=== PATIENT | male | born 1950 | race Caucasian/White ===

== ENCOUNTER 2020-09-23 06:39 | Observation (INO) | payer MEDICARE ==
[2020-09-16 14:45] LABS: BASOPHILS % (AUTO) 0.6 % (0-1); EOSINOPHILS # (AUTO) 0.2 X10'3 (0-0.9); EOSINOPHILS % (AUTO) 3.7 % (0-6); LYMPHOCYTES # (AUTO) 1.2 X10'3 (1.1-4.8); LYMPHOCYTES % (AUTO) 19.3 % (21-51); MEAN CORPUSCULAR HGB CONC 33.8 g/dL (33.0-36.5); MEAN CORPUSCULAR VOLUME 91.8 FL (78-98); MEAN PLATELET VOLUME 7.7 FL (7.4-10.4); MONOCYTES # (AUTO) 0.6 X10'3 (0-0.9); MONOCYTES % (AUTO) 10.3 % (2-12); NEUTROPHILS # (AUTO) 4.1 X10'3 (1.8-7.7); NEUTROPHILS % (AUTO) 66.1 % (42-75); PRE OP HEMATOCRIT 38.8 % (42.0-52.0); PRE OP HEMOGLOBIN 13.1 g/dL (14.0-17.9); PRE OP PLATELET COUNT 305 X10'3 (140-440); RED BLOOD COUNT 4.23 X10'6 (4.70-6.10); RED CELL DISTRIBUTION WIDTH 12.6 % (11.5-14.5)
[2020-09-16 14:50] LABS: CLARITY,URINE CLEAR (Clear); COLOR,URINE YELLOW (Yellow); GLUCOSE, URINE NEGATIVE (Neg); KETONES,URINE NEGATIVE (Neg); LEUKOCYTE ESTERASE ,URINE NEGATIVE (Neg); NITRITES, URINE NEGATIVE (Neg); OCCULT BLOOD,URINE NEGATIVE (Neg); PROTEIN,URINE NEGATIVE (Neg); UROBILINOGEN,URINE 0.2 E.U/dL (0.2-1.0)
[2020-09-16 14:57] LABS: UA COLLECTION TYPE CLN CATCH MIDSTREAM
[2020-09-16 15:00] LABS: ALBUMIN 3.8 G/DL (3.4-5.0); ALKALINE PHOSPHATASE 76 IU/L (46-116); BLOOD UREA NITROGEN 17 MG/DL (7-18); BUN/CREATININE RATIO 18.7 (5.4-32.0); CALCIUM 9.4 MG/DL (8.5-10.1); CHLORIDE 98 MMOL/L (99-107); CREATININE 0.91 MG/DL (0.60-1.10); PRE OP ALT 20 U/L (30-65); PRE OP ANION GAP 5 (8-16); PRE OP AST 17 U/L (10-37); PRE OP BILIRUB, TOTAL 0.3 MG/DL (0.0-1.0); PRE OP GLUCOSE 97 MG/DL (70-104); PRE OP POTASSIUM 4.2 MMOL/L (3.4-5.1); PRE OP SODIUM 134 MMOL/L (135-145); TOTAL CARBON DIOXIDE 31.4 MMOL/L (24-32); TOTAL PROTEIN 7.6 G/DL (6.4-8.2); eGFR 82 ML/MIN
[~2020-09-23] VITALS: Ht 175.3 cm; Wt 79.4 kg
[2020-09-23] VITALS (17 sets, daily range): BP systolic 132–164; BP diastolic 72–90
[~2020-09-23 06:39] MED LIST: DOCUMENT DATE & TIME OF BETA-BLOCKER PO ONE; FLO0.4C PO; METO-395 PO; MV-M1CAP15 PO; ceFAZolin 2gm in dextrose, iso 50 ML IV ONE; famotidine 20mg tablet PO ONE; ringers solution, lacted 1,000 ML IV SCH
[2020-09-23] MEDS ORDERED: BUPIVAcaine/PF 2.5 mg/ml (0.25%) 30ml vial ONE (06:41)
--- NOTE | 2020-09-23 08:47 | NUR ---
VERBAL COVID SCREEN NEGATIVE Addendum: 09/23/20 at 0901 by Dawna Morales RN Amended: Links added.
[2020-09-23] MEDS ORDERED: ondansetron/PF 4mg/2ml inj ONE (09:42)
[2020-09-23] MEDS ORDERED: sevoflurane 250ml liquid IH ONE (09:42)
[2020-09-23] MEDS ORDERED: fentaNYL/PF 50MCG/1 ML 2ML syringe ONE (09:47)
[2020-09-23] MEDS ORDERED: midazolam 1 mg/ML 2ml injection ONE (09:47)
[2020-09-23] MEDS ORDERED: LIDOcaine 2% (20mg/ml) 5ml vial ONE (09:48)
[2020-09-23] MEDS ORDERED: propofol inj 20 ML IV ONE (09:48)
[2020-09-23] MEDS ORDERED: dexamethasone sod phosphate 4mg/ml inj. ONE (10:01)
[2020-09-23] MEDS ORDERED: rocuronium 10mg/ml inj IV ONE (10:01)
[2020-09-23] MEDS ORDERED: acetaminophen 1,000mg/100ml IV 100 ML IV ONE (10:09)
[2020-09-23] MEDS ORDERED: meperidine/PF 25mg/ml syringe IV PRN ×3 (11:20)
[2020-09-23] MEDS ORDERED: morphine 4 MG/ML inj SYRINge IV PRN (11:20)
[2020-09-23] MEDS ORDERED: ondansetron/PF 4mg/2ml inj IV PRN (11:20)
[2020-09-23] MEDS ORDERED: morphine 2 MG/ML inj. syringe IV PRN (11:20)
[2020-09-23] MEDS ORDERED: ringers solution, lacted 1,000 ML IV SCH (11:20)
[2020-09-23] MEDS ORDERED: proCHLORperazine 10 MG/2 ml inj IV PRN (11:20)
[2020-09-23] MEDS ORDERED: glycopyrrolate 0.2mg/ml inj ONE (11:31)
[2020-09-23] MEDS ORDERED: neostigmine methylsulfate 1 MG/ML 10ml vial ONE (11:31)
--- NOTE | 2020-09-23 11:38 | NUR ---
Received from OR via BED, accompanied by Anesthesiologist CHAI and report given by Anesthesiolgist. PT AROUSABLE, O2 AT 10L. VIA MASK, VSS, NSR. ABLE TO COUGH AND DEEP BREATHE, 18 G. IN RIGHT FA WITH LR INFUSING AT 100 ML/HR. IV IN L. WRIST NOT FUNCTIONING IN OR. 4 INCISIONS ON ABDOMENT CLOSED WITH DERMABOND. PT. STATES PAIN AT "3" WHICH HE SAYS IS "OKAY". SCD'S IN PLACE AND FUNCTIONING. PT. RESTING AT THIS TIME. EYES CLOSED, BREATHING EVEN AND UNLABORED. Addendum: 09/23/20 at 1207 by Nieves Grant RN Amended: Links added.
[2020-09-23] MEDS ORDERED: HYDROcodone/acetaminophen 10/325mg tab PO PRN ×2 (12:15)
--- NOTE | 2020-09-23 12:28 | NUR ---
REPORT CALLED TO [facility] FLOOR, YOHANA , PT. TRANSPORTED ON BED. MADELINE BATISTA PRESENT TO ACCEPT CARE. REITERATED TO YOHANA THAT PT. IS A FALL RISK/ DEMENTIA.. BELONGINGS SENT WITH PT. VSS. PT. ALERT. 4 INCISIONS WITH DERMABOND INTACT ON ABDOMEN. REPORTS PAIN AT 3 WHICH IS "OKAY". LR INFUSING AT 70 ML/HR INTO R. FA 18G IV SITE WHICH IS CDI. Addendum: 09/23/20 at 1246 by Nieves Grant RN Amended: Links added.
--- NOTE | 2020-09-23 13:00 | NUR ---
Patient in room [facility] 357. I have received report from Nieves CORREA and had the opportunity to ask questions and assume patient care.
--- NOTE | 2020-09-23 16:18 | NUR ---
Dr Pina called the floor. I informed Dr Pina that patient is having light pink urine s/p gonzalez being discontinued in the OR. Dr Pina aware patient had a TURP [address] Blair. [address] Dr Pina continue to monitor urine and if he starts to have clots you can do an H&H. Primary RN Lashonda menezes.
--- NOTE | 2020-09-23 18:21 | NUR ---
Problems reprioritized. Patient report given, questions answered & plan of care reviewed with Pat RN.
[2020-09-23] MEDS ORDERED: tamsulosin 0.4mg capsule PO SCH (21:00)
[2020-09-23] MEDS ORDERED: metoprolol succinate 25mg (24-HOUR) SR. Tablet PO SCH (21:00)
[2020-09-24] VITALS: BP 150/86
[2020-09-24 04:30] VITALS: BP 136/75
--- NOTE | 2020-09-24 06:38 | NUR ---
Patient in room [facility] 357. I have received report from Pat RN and had the opportunity to ask questions and assume patient care.
[2020-09-24 07:00] VITALS: BP 131/76
[2020-09-24] MEDS ORDERED: multivitamins, therapeutics tablet PO SCH (08:00)
[2020-09-24 11:51] VITALS: BP 147/77
[2020-09-24 12:48] VITALS: BP 148/73
--- NOTE | 2020-09-24 14:15 | NUR ---
Patient left the floor at 1355. He was educated on follow up care, restrictions, and diet. IV was removed by Nadia CORREA and canula was intact.
--- NOTE | 2020-09-25 10:13 | NUR ---
CASE MANAGEMENT DISCHARGE FOLLOW UP: Spoke with pt via telephone. Reports that he is "doing okay," denies constant pain, states only has pain when he stands/walks; denies SOB, CP, fever, swelling, redness, discharge/bleeding, dizziness/weakness. Verbalizes understanding of s/sx requiring further evaluation/emergent assistance. Verbalizes understanding of medications. Verbalizes compliance with MD discharge instructions. Verbalizes understanding of the importance in keeping follow-up appointments, will see Dr Mcintyre on 09/29/20 @ [id number]. States no further questions/concerns at this time.
== END 2020-09-24 13:57 | disposition home or self-care (01) ==
LOC: PAS 06:39 → SUR 3N 12:15
PROVIDERS: ADMIT Surgery; ATTEND Surgery
DX: K43.9 Ventral hernia without obstruction or gangrene (principal); Z20.822 Contact with and (suspected) exposure to COVID-19; Z96.642 Presence of left artificial hip joint
CPT/HCPCS: 36415; 49652; 80053; 81003; 82948; 85025; 87635; 96360; 96361; C1758; C1781; G0378; J0131; J1100; J2001; J2250; J2405; J2704; J2710; J3010; J3490; J7120; A4215; A4618

== ENCOUNTER 2023-11-11 22:00 | Inpatient (IN) | payer MEDICARE ==
[~2023-11-11] VITALS: Ht 165.1 cm; Wt 77.3 kg
[~2023-11-11 22:00] MED LIST changes: -DOCUMENT DATE & TIME OF BETA-BLOCKER PO ONE; -ceFAZolin 2gm in dextrose, iso 50 ML IV ONE; -famotidine 20mg tablet PO ONE; -ringers solution, lacted 1,000 ML IV SCH
[2023-11-11 23:36] LABS: BASOPHILS % (AUTO) 0.1 % (0-1); EOSINOPHILS % (AUTO) 0.2 % (0-6); HEMATOCRIT 31.9 % (42.0-52.0); HEMOGLOBIN 10.8 g/dl (14.0-17.9); LYMPHOCYTES # (AUTO) 0.5 X10'3 (1.1-4.8); LYMPHOCYTES % (AUTO) 2.7 % (21-51); MEAN CORPUSCULAR HEMOGLOBIN 31.4 PG (27.0-31.0); MEAN CORPUSCULAR VOLUME 92.6 FL (78-98); MEAN PLATELET VOLUME 8.3 FL (7.4-10.4); MONOCYTES # (AUTO) 0.8 X10'3 (0-0.9); MONOCYTES % (AUTO) 4.8 % (2-12); NEUTROPHILS # (AUTO) 15.8 X10'3 (1.8-7.7); NEUTROPHILS % (AUTO) 92.2 % (42-75); PLATELET COUNT 246 X10'3 (140-440); RED BLOOD COUNT 3.44 X10'6 (4.70-6.10); RED CELL DISTRIBUTION WIDTH 12.8 % (11.5-14.5); WHITE BLOOD COUNT 17.1 X10'3 (4.5-11.0)
[2023-11-11 23:44] LABS: ALBUMIN 3.7 G/DL (3.4-5.0); ANION GAP 13 (8-16); BLOOD UREA NITROGEN 27 MG/DL (7-18); BUN/CREATININE RATIO 28.4 (10.0-20.0); CHLORIDE 99 MMOL/L (99-107); CREATININE 0.95 MG/DL (0.60-1.10); GLUCOSE 153 MG/DL (70-104); POTASSIUM 4.1 MMOL/L (3.5-5.1); SODIUM 136 MMOL/L (135-145); TOTAL CARBON DIOXIDE 23.7 MMOL/L (24-32); eCRCL 59 ML/MIN; eGFR 77 ML/MIN
[2023-11-12] VITALS (26 sets, daily range): BP systolic 93–163; BP diastolic 54–85; PULSE 96–121; RESP 11–22; TEMP 97.4–98; O2SAT 95–100
[2023-11-12] MEDS: piperacillin/tazo 3.375gm/50ml 50 ML IV ONE (00:13)
[2023-11-12] MEDS ORDERED: HYDROmorphone/PF 0.2 MG/ML SYRINGE IV PRN (01:55)
[2023-11-12] MEDS ORDERED: magnesium 2GM in 50ml NS 50 ML IV PRN (01:55)
[2023-11-12] MEDS ORDERED: magnesium 4gm in 100ml NS 100 ML IV PRN (01:55)
[2023-11-12] MEDS ORDERED: potassium Cl 20 mEq SR tablet PO PRN ×2 (01:55)
[2023-11-12] MEDS ORDERED: potassium Cl 40MEQ/1/2NS 520ml 520 ML IV PRN (01:55)
[2023-11-12] MEDS ORDERED: acetaminophen 325mg tablet PO PRN (01:55)
[2023-11-12] MEDS: normal saline 1000ML IV soln IVB ONE (02:02)
[2023-11-12 02:41] LABS: MAGNESIUM 1.9 MG/DL (1.5-2.4)
[2023-11-12] MEDS: normal saline 1000ml 1,000 ML IV SCH (03:52)
[2023-11-12] MEDS ORDERED: VIBE75TA PO (04:26)
[2023-11-12] MEDS ORDERED: ROSU5TAB12 PO (04:27)
[2023-11-12] MEDS: K and/or MAG REPLACEMENT MC SCH (08:00)
[2023-11-12] MEDS: multivitamins, therapeutics tablet PO SCH (08:00)
[2023-11-12] MEDS: Vibegron (Gemtesa) 75 MG TAB PO SCH (08:00)
[2023-11-12] MEDS: docusate sod 100mg capsule PO SCH (08:00)
[2023-11-12] MEDS: ROSUVASTATIN CALCIUM 5 MG TABLET PO SCH (08:00)
[2023-11-12] MEDS: piperacillin/tazo 4.5gm/100ml 100 ML IV SCH (08:00)
[2023-11-12] MEDS ORDERED: sevoflurane 250ml liquid IH ONE (08:50)
[2023-11-12] MEDS ORDERED: fentaNYL /PF 50mcg/ml 5ml ampule ONE (08:55)
[2023-11-12] MEDS ORDERED: midazolam 1 mg/ML 2ml injection ONE (08:55)
[2023-11-12] MEDS ORDERED: BUPIVAcaine/PF 2.5mg/ml (0.25%) 10ml vial ONE (08:58)
[2023-11-12] MEDS ORDERED: BUPIVACAINE liposomal/PF 13.3 MG/ML vial IM ONE (08:58)
[2023-11-12] MEDS ORDERED: propofol inj 20 ML IV ONE (08:59)
[2023-11-12] MEDS ORDERED: rocuronium 10mg/ml inj IV ONE (08:59)
[2023-11-12 09:09] LABS: OCCULT BLOOD STOOL POSITIVE (Neg)
[2023-11-12] MEDS ORDERED: dexamethasone sod phosphate 4mg/ml inj. ONE (09:28)
[2023-11-12] MEDS ORDERED: LIDOcaine 2% (20mg/ml) 5ml vial ONE (09:28)
[2023-11-12] MEDS ORDERED: ondansetron/PF 4mg/2ml inj ONE (09:29)
[2023-11-12] MEDS ORDERED: meperidine/PF 25mg/ml syringe IV PRN ×2 (09:35)
[2023-11-12] MEDS ORDERED: enalaprilat dihydrate 2.5mg/2ml vial IV PRN (09:35)
[2023-11-12] MEDS: ringers solution, lacted 1,000 ML IV SCH (09:35)
[2023-11-12] MEDS ORDERED: proCHLORperazine 10 MG/2 ml inj IV PRN (09:35)
[2023-11-12] MEDS ORDERED: labetalol 20mg/4ml (5mg/ml) syringe IV PRN (09:35)
[2023-11-12] MEDS ORDERED: morphine 4 MG/ML inj SYRINge IV PRN (09:35)
[2023-11-12] MEDS ORDERED: ondansetron/PF 4mg/2ml inj IV PRN (09:35)
[2023-11-12] MEDS ORDERED: morphine 2 MG/ML inj. syringe IV PRN (09:35)
[2023-11-12] MEDS ORDERED: pneumococcal 23-VAL P-sac vacc 25 mcg/0.5ml vial IMVAC ONE (10:00)
[2023-11-12] MEDS: meperidine/PF 25mg/ml syringe IV PRN (11:20)
[2023-11-12] MEDS: LidoCAINE 2% Topical Jelly 11mL syringe (UROJET) ONE (11:21)
[2023-11-12] MEDS: LidoCAINE 2% Topical Jelly 11mL syringe (UROJET) MM ONE (11:58)
[2023-11-12] MEDS ORDERED: albuterol 2.5 MG/3 ML nebule NEB PRN (15:25)
[2023-11-12] MEDS: normal saline 500ml IV soln 500 ML IV ONE ×2 (17:22→18:44)
[2023-11-12] MEDS ORDERED: tamsulosin 0.4mg capsule PO SCH (21:00)
[2023-11-12] MEDS: metoprolol succinate 25mg (24-HOUR) SR. Tablet PO SCH (21:54)
[2023-11-12] MEDS: tamsulosin 0.4mg capsule PO SCH (21:54)
[2023-11-12] MEDS: enoxaparin 40mg/0.4ml syringe SQ SCH (21:55)
[2023-11-13] VITALS (15 sets, daily range): BP systolic 127–170; BP diastolic 69–99; PULSE 16–109; RESP 16–23; TEMP 97.4–99.7; O2SAT 94–98
[2023-11-13 06:19] LABS: BASOPHILS % (AUTO) 0.3 % (0-1); EOSINOPHILS % (AUTO) 0 % (0-6); LYMPHOCYTES # (AUTO) 0.7 X10'3 (1.1-4.8); LYMPHOCYTES % (AUTO) 7.9 % (21-51); MEAN CORPUSCULAR HEMOGLOBIN 32.3 PG (27.0-31.0); MEAN CORPUSCULAR HGB CONC 35.2 g/dL (33.0-36.5); MEAN CORPUSCULAR VOLUME 91.8 FL (78-98); MEAN PLATELET VOLUME 8.3 FL (7.4-10.4); MONOCYTES # (AUTO) 1.1 X10'3 (0-0.9); MONOCYTES % (AUTO) 12.1 % (2-12); NEUTROPHILS # (AUTO) 7.4 X10'3 (1.8-7.7); NEUTROPHILS % (AUTO) 79.7 % (42-75); PLATELET COUNT 214 X10'3 (140-440); RED BLOOD COUNT 2.06 X10'6 (4.70-6.10); WHITE BLOOD COUNT 9.3 X10'3 (4.5-11.0)
[2023-11-13 06:29] LABS: HEMATOCRIT 18.9 % (42.0-52.0); HEMOGLOBIN 6.6 g/dl (14.0-17.9)
[2023-11-13 06:30] LABS: ALANINE AMINOTRANSFERASE 16 U/L (12-78); ALBUMIN 2.5 G/DL (3.4-5.0); ALKALINE PHOSPHATASE 32 IU/L (46-116); ANION GAP 9 (8-16); ASPARTATE AMINO TRANSFERASE 16 U/L (10-37); BILIRUBIN,TOTAL 0.3 MG/DL (0.1-1.0); BLOOD UREA NITROGEN 25 MG/DL (7-18); BUN/CREATININE RATIO 26.3 (10.0-20.0); CALCIUM 7.4 MG/DL (8.5-10.1); CHLORIDE 105 MMOL/L (99-107); CREATININE 0.95 MG/DL (0.60-1.10); GLUCOSE 119 MG/DL (70-104); MAGNESIUM 1.9 MG/DL (1.5-2.4); POTASSIUM 3.9 MMOL/L (3.5-5.1); SODIUM 138 MMOL/L (135-145); TOTAL PROTEIN 5.1 G/DL (6.4-8.2); eCRCL 59 ML/MIN; eGFR 77 ML/MIN
[2023-11-13] MEDS ORDERED: pneumococcal 23-VAL P-sac vacc 25 mcg/0.5ml vial IMVAC ONE (10:00)
[2023-11-13 20:29] LABS: HEMATOCRIT 26.3 % (42.0-52.0); MEAN CORPUSCULAR HEMOGLOBIN 31.2 PG (27.0-31.0); MEAN CORPUSCULAR HGB CONC 34.4 g/dL (33.0-36.5); MEAN CORPUSCULAR VOLUME 90.9 FL (78-98); MEAN PLATELET VOLUME 8.1 FL (7.4-10.4); PLATELET COUNT 178 X10'3 (140-440); RED BLOOD COUNT 2.89 X10'6 (4.70-6.10); RED CELL DISTRIBUTION WIDTH 13.9 % (11.5-14.5); WHITE BLOOD COUNT 9.4 X10'3 (4.5-11.0)
[2023-11-13] MEDS: HYDROmorphone inj. 0.5 MG/0.5 ML DISP.SYRIN IV PRN (21:31)
[2023-11-14 06:00] VITALS: BP 142/86; PULSE 95; RESP 16; TEMP 96.6; O2SAT 99
[2023-11-14 06:21] LABS: BASOPHILS % (AUTO) 0.2 % (0-1); EOSINOPHILS # (AUTO) 0.4 X10'3 (0-0.9); EOSINOPHILS % (AUTO) 4.7 % (0-6); HEMATOCRIT 25.8 % (42.0-52.0); HEMOGLOBIN 8.8 g/dl (14.0-17.9); LYMPHOCYTES # (AUTO) 0.9 X10'3 (1.1-4.8); LYMPHOCYTES % (AUTO) 10.2 % (21-51); MEAN CORPUSCULAR HEMOGLOBIN 31.4 PG (27.0-31.0); MEAN CORPUSCULAR HGB CONC 34.3 g/dL (33.0-36.5); MEAN CORPUSCULAR VOLUME 91.6 FL (78-98); MEAN PLATELET VOLUME 8.5 FL (7.4-10.4); MONOCYTES % (AUTO) 10.8 % (2-12); NEUTROPHILS # (AUTO) 6.9 X10'3 (1.8-7.7); NEUTROPHILS % (AUTO) 74.1 % (42-75); PLATELET COUNT 177 X10'3 (140-440); RED BLOOD COUNT 2.82 X10'6 (4.70-6.10); RED CELL DISTRIBUTION WIDTH 13.5 % (11.5-14.5); WHITE BLOOD COUNT 9.3 X10'3 (4.5-11.0)
[2023-11-14 06:41] LABS: ALANINE AMINOTRANSFERASE 16 U/L (12-78); ALBUMIN 2.6 G/DL (3.4-5.0); ALBUMIN/GLOBULIN RATIO 0.9 (1.1-1.5); ALKALINE PHOSPHATASE 38 IU/L (46-116); ANION GAP 10 (8-16); ASPARTATE AMINO TRANSFERASE 28 U/L (10-37); BILIRUBIN,TOTAL 0.7 MG/DL (0.1-1.0); BLOOD UREA NITROGEN 15 MG/DL (7-18); BUN/CREATININE RATIO 21.4 (10.0-20.0); CALCIUM 7.8 MG/DL (8.5-10.1); CHLORIDE 102 MMOL/L (99-107); GLUCOSE 96 MG/DL (70-104); MAGNESIUM 1.9 MG/DL (1.5-2.4); POTASSIUM 3.5 MMOL/L (3.5-5.1); SODIUM 135 MMOL/L (135-145); TOTAL PROTEIN 5.6 G/DL (6.4-8.2); eCRCL 81 ML/MIN; eGFR > 90 ML/MIN
[2023-11-14 11:00] VITALS: BP 165/85; PULSE 98; RESP 18; TEMP 99; O2SAT 95
[2023-11-14] MEDS ORDERED: pneumococcal 23-VAL P-sac vacc 25 mcg/0.5ml vial IMVAC ONE (11:20)
[2023-11-14] MEDS: ondansetron/PF 4mg/2ml inj IV PRN (13:12)
[2023-11-14 18:00] VITALS: BP 153/87; PULSE 80; RESP 16; TEMP 98.3; O2SAT 93
[2023-11-14] MEDS ORDERED: hydrALAZINE 20mg/ml inj. IV PRN (19:20)
[2023-11-14 20:00] VITALS: RESP 16; O2SAT 93
[2023-11-14 21:14] VITALS: PULSE 94; RESP 16; O2SAT 94
[2023-11-14] MEDS: mag hydrox/Alum hydrox/simeth 30ml oral suspension PO PRN (21:47)
[2023-11-14 22:00] VITALS: BP 162/93; PULSE 105; RESP 12; TEMP 98; O2SAT 96
[2023-11-15] VITALS (8 sets, daily range): BP systolic 99–156; BP diastolic 60–69; PULSE 54–99; RESP 14–18; TEMP 97.9–98.5; O2SAT 96–100
[2023-11-15 06:23] LABS: BASOPHILS % (AUTO) 0.2 % (0-1); EOSINOPHILS # (AUTO) 0.3 X10'3 (0-0.9); EOSINOPHILS % (AUTO) 3.1 % (0-6); HEMATOCRIT 24.5 % (42.0-52.0); HEMOGLOBIN 8.7 g/dl (14.0-17.9); LYMPHOCYTES % (AUTO) 9.9 % (21-51); MEAN CORPUSCULAR HEMOGLOBIN 32.1 PG (27.0-31.0); MEAN CORPUSCULAR HGB CONC 35.6 g/dL (33.0-36.5); MEAN CORPUSCULAR VOLUME 90.3 FL (78-98); MEAN PLATELET VOLUME 8.2 FL (7.4-10.4); MONOCYTES # (AUTO) 0.9 X10'3 (0-0.9); NEUTROPHILS # (AUTO) 7.7 X10'3 (1.8-7.7); NEUTROPHILS % (AUTO) 77.8 % (42-75); PLATELET COUNT 212 X10'3 (140-440); RED BLOOD COUNT 2.72 X10'6 (4.70-6.10); RED CELL DISTRIBUTION WIDTH 12.9 % (11.5-14.5); WHITE BLOOD COUNT 9.9 X10'3 (4.5-11.0)
[2023-11-15 06:36] LABS: ALANINE AMINOTRANSFERASE 21 U/L (12-78); ALBUMIN 2.6 G/DL (3.4-5.0); ALBUMIN/GLOBULIN RATIO 0.8 (1.1-1.5); ALKALINE PHOSPHATASE 41 IU/L (46-116); ANION GAP 9 (8-16); ASPARTATE AMINO TRANSFERASE 25 U/L (10-37); BILIRUBIN,TOTAL 0.5 MG/DL (0.1-1.0); BLOOD UREA NITROGEN 14 MG/DL (7-18); BUN/CREATININE RATIO 18.7 (10.0-20.0); CHLORIDE 97 MMOL/L (99-107); CREATININE 0.75 MG/DL (0.60-1.10); GLUCOSE 105 MG/DL (70-104); MAGNESIUM 1.9 MG/DL (1.5-2.4); SODIUM 131 MMOL/L (135-145); TOTAL PROTEIN 5.8 G/DL (6.4-8.2); eCRCL 75 ML/MIN; eGFR > 90 ML/MIN
[2023-11-15 06:47] LABS: POTASSIUM 2.8 MMOL/L (3.5-5.1)
[2023-11-15] MEDS ORDERED: potassium Cl 40MEQ/1/2NS 520ml 520 ML IV PRN (06:50)
[2023-11-15] MEDS ORDERED: magnesium Cl slow-release 64mg tablet PO PRN (06:50)
[2023-11-15] MEDS ORDERED: magnesium 2GM in 50ml NS 50 ML IV PRN (06:50)
[2023-11-15] MEDS ORDERED: magnesium 4gm in 100ml NS 100 ML IV PRN (06:50)
[2023-11-15] MEDS: potassium Cl 20 mEq SR tablet PO PRN ×2 (07:08)
[2023-11-15] MEDS: K and/or MAG REPLACEMENT MC SCH (08:00)
[2023-11-15] MEDS: acetaminophen 325mg tablet PO PRN (11:20)
[2023-11-15] MEDS: metoclopramide 5 mg/ml inj IV SCH (20:49)
[2023-11-16] VITALS (13 sets, daily range): BP systolic 116–138; BP diastolic 60–79; PULSE 64–97; RESP 14–17; TEMP 97.4–98.8; O2SAT 93–96
[2023-11-16 06:20] LABS: BASOPHILS % (AUTO) 0.4 % (0-1); EOSINOPHILS # (AUTO) 0.6 X10'3 (0-0.9); EOSINOPHILS % (AUTO) 8.3 % (0-6); HEMATOCRIT 22.4 % (42.0-52.0); HEMOGLOBIN 7.8 g/dl (14.0-17.9); LYMPHOCYTES # (AUTO) 0.6 X10'3 (1.1-4.8); LYMPHOCYTES % (AUTO) 9.1 % (21-51); MEAN CORPUSCULAR HEMOGLOBIN 31.6 PG (27.0-31.0); MEAN CORPUSCULAR HGB CONC 34.8 g/dL (33.0-36.5); MEAN CORPUSCULAR VOLUME 90.8 FL (78-98); MEAN PLATELET VOLUME 7.8 FL (7.4-10.4); MONOCYTES # (AUTO) 0.7 X10'3 (0-0.9); MONOCYTES % (AUTO) 10.1 % (2-12); NEUTROPHILS # (AUTO) 5.1 X10'3 (1.8-7.7); NEUTROPHILS % (AUTO) 72.1 % (42-75); PLATELET COUNT 222 X10'3 (140-440); RED BLOOD COUNT 2.47 X10'6 (4.70-6.10)
[2023-11-16 06:53] LABS: ALANINE AMINOTRANSFERASE 18 U/L (12-78); ALBUMIN 2.3 G/DL (3.4-5.0); ALBUMIN/GLOBULIN RATIO 0.7 (1.1-1.5); ALKALINE PHOSPHATASE 34 IU/L (46-116); ANION GAP 4 (8-16); ASPARTATE AMINO TRANSFERASE 19 U/L (10-37); BILIRUBIN,TOTAL 0.4 MG/DL (0.1-1.0); BLOOD UREA NITROGEN 13 MG/DL (7-18); BUN/CREATININE RATIO 15.9 (10.0-20.0); CALCIUM 7.6 MG/DL (8.5-10.1); CHLORIDE 101 MMOL/L (99-107); CREATININE 0.82 MG/DL (0.60-1.10); GLUCOSE 90 MG/DL (70-104); MAGNESIUM 1.9 MG/DL (1.5-2.4); POTASSIUM 3.7 MMOL/L (3.5-5.1); SODIUM 129 MMOL/L (135-145); TOTAL CARBON DIOXIDE 24.4 MMOL/L (24-32); TOTAL PROTEIN 5.4 G/DL (6.4-8.2); eCRCL 69 ML/MIN; eGFR > 90 ML/MIN
[2023-11-16 15:41] LABS: ALBUMIN 2.5 G/DL (3.4-5.0); ANION GAP 6 (8-16); BLOOD UREA NITROGEN 11 MG/DL (7-18); BUN/CREATININE RATIO 11.5 (10.0-20.0); CALCIUM 7.9 MG/DL (8.5-10.1); CHLORIDE 103 MMOL/L (99-107); CREATININE 0.96 MG/DL (0.60-1.10); GLUCOSE 119 MG/DL (70-104); SODIUM 134 MMOL/L (135-145); TOTAL CARBON DIOXIDE 24.6 MMOL/L (24-32); eCRCL 59 ML/MIN; eGFR 77 ML/MIN
[2023-11-16] MEDS: potassium Cl 20mEq in NS 1,000 ML IV SCH (16:25)
[2023-11-16] MEDS: Vibegron (Gemtesa) 75 MG TAB PO SCH (22:55)
[2023-11-17] VITALS (7 sets, daily range): BP systolic 134–147; BP diastolic 68–80; PULSE 71–91; RESP 16–18; TEMP 98.1–98.8; O2SAT 94–100
[2023-11-17 06:29] LABS: BASOPHILS % (AUTO) 0.4 % (0-1); EOSINOPHILS # (AUTO) 0.6 X10'3 (0-0.9); EOSINOPHILS % (AUTO) 6.5 % (0-6); HEMATOCRIT 25.8 % (42.0-52.0); HEMOGLOBIN 8.9 g/dl (14.0-17.9); LYMPHOCYTES # (AUTO) 0.8 X10'3 (1.1-4.8); LYMPHOCYTES % (AUTO) 8.1 % (21-51); MEAN CORPUSCULAR HEMOGLOBIN 31.5 PG (27.0-31.0); MEAN CORPUSCULAR HGB CONC 34.6 g/dL (33.0-36.5); MEAN CORPUSCULAR VOLUME 91.1 FL (78-98); MONOCYTES # (AUTO) 0.9 X10'3 (0-0.9); NEUTROPHILS # (AUTO) 7.1 X10'3 (1.8-7.7); PLATELET COUNT 277 X10'3 (140-440); RED BLOOD COUNT 2.83 X10'6 (4.70-6.10); RED CELL DISTRIBUTION WIDTH 13.4 % (11.5-14.5); WHITE BLOOD COUNT 9.4 X10'3 (4.5-11.0)
[2023-11-17 06:49] LABS: ALANINE AMINOTRANSFERASE 31 U/L (12-78); ALBUMIN 2.6 G/DL (3.4-5.0); ALBUMIN/GLOBULIN RATIO 0.8 (1.1-1.5); ALKALINE PHOSPHATASE 40 IU/L (46-116); ANION GAP 3 (8-16); ASPARTATE AMINO TRANSFERASE 30 U/L (10-37); BILIRUBIN,TOTAL 0.4 MG/DL (0.1-1.0); BLOOD UREA NITROGEN 12 MG/DL (7-18); BUN/CREATININE RATIO 14.3 (10.0-20.0); CHLORIDE 104 MMOL/L (99-107); CREATININE 0.84 MG/DL (0.60-1.10); GLUCOSE 103 MG/DL (70-104); POTASSIUM 4.1 MMOL/L (3.5-5.1); SODIUM 133 MMOL/L (135-145); TOTAL PROTEIN 5.9 G/DL (6.4-8.2); eCRCL 67 ML/MIN; eGFR 89 ML/MIN
[2023-11-17] MEDS: pneumococcal 23-VAL P-sac vacc 25 mcg/0.5ml vial IMVAC ONE (11:25)
[2023-11-17 17:38] LABS: OCCULT BLOOD STOOL POSITIVE (Neg)
[2023-11-18 03:33] VITALS: PULSE 91; RESP 16; O2SAT 96
[2023-11-18 06:00] VITALS: BP 153/85; PULSE 94; RESP 20; TEMP 97.6; O2SAT 95
[2023-11-18 07:20] VITALS: RESP 20; O2SAT 95
[2023-11-18] MEDS: pneumococcal 23-VAL P-sac vacc 25 mcg/0.5ml vial IMVAC ONE (09:07)
[2023-11-18 09:44] LABS: BASOPHILS % (AUTO) 0.4 % (0-1); EOSINOPHILS # (AUTO) 0.6 X10'3 (0-0.9); EOSINOPHILS % (AUTO) 5.7 % (0-6); HEMATOCRIT 27.9 % (42.0-52.0); HEMOGLOBIN 9.6 g/dl (14.0-17.9); LYMPHOCYTES # (AUTO) 0.6 X10'3 (1.1-4.8); LYMPHOCYTES % (AUTO) 5.4 % (21-51); MEAN CORPUSCULAR HEMOGLOBIN 31.6 PG (27.0-31.0); MEAN CORPUSCULAR HGB CONC 34.3 g/dL (33.0-36.5); MEAN PLATELET VOLUME 7.3 FL (7.4-10.4); MONOCYTES # (AUTO) 0.7 X10'3 (0-0.9); MONOCYTES % (AUTO) 6.8 % (2-12); NEUTROPHILS # (AUTO) 8.9 X10'3 (1.8-7.7); NEUTROPHILS % (AUTO) 81.7 % (42-75); PLATELET COUNT 307 X10'3 (140-440); RED BLOOD COUNT 3.03 X10'6 (4.70-6.10); RED CELL DISTRIBUTION WIDTH 13.8 % (11.5-14.5); WHITE BLOOD COUNT 10.9 X10'3 (4.5-11.0)
[2023-11-18 10:26] LABS: ALANINE AMINOTRANSFERASE 44 U/L (12-78); ALBUMIN 2.7 G/DL (3.4-5.0); ALBUMIN/GLOBULIN RATIO 0.8 (1.1-1.5); ALKALINE PHOSPHATASE 45 IU/L (46-116); ANION GAP 6 (8-16); ASPARTATE AMINO TRANSFERASE 30 U/L (10-37); BILIRUBIN,TOTAL 0.4 MG/DL (0.1-1.0); BLOOD UREA NITROGEN 12 MG/DL (7-18); BUN/CREATININE RATIO 13.5 (10.0-20.0); CALCIUM 8.3 MG/DL (8.5-10.1); CHLORIDE 100 MMOL/L (99-107); CREATININE 0.89 MG/DL (0.60-1.10); GLUCOSE 137 MG/DL (70-104); SODIUM 134 MMOL/L (135-145); TOTAL CARBON DIOXIDE 27.8 MMOL/L (24-32); TOTAL PROTEIN 6.3 G/DL (6.4-8.2); eCRCL 63 ML/MIN; eGFR 84 ML/MIN
[2023-11-18] MEDS ORDERED: oxyCODONE/APAP 5-325mg tablet PO PRN (10:55)
[2023-11-18 11:00] VITALS: BP 123/65; PULSE 91; RESP 18; TEMP 97.9; O2SAT 97
== END 2023-11-18 13:00 | disposition home or self-care (01) | DRG 329 ==
LOC: ER 22:00 → ED HOLD 11-12 01:57 → SUR 3N 11-12 03:57
PROVIDERS: ADMIT Family Medicine; ATTEND Internal Medicine
PROC: 0DN80ZZ Release Small Intestine, Open Approach (ICD-10-PCS; 2023-11-12)
PROC: 0WPF0JZ Removal of Synthetic Substitute from Abdominal Wall, Open Approach (ICD-10-PCS; 2023-11-12)
PROC: 0D9670Z Drainage of Stomach with Drainage Device, Via Natural or Artificial Opening (ICD-10-PCS; 2023-11-12)
PROC: 3E0T3BZ Introduction of Anesthetic Agent into Peripheral Nerves and Plexi, Percutaneous Approach (ICD-10-PCS; 2023-11-12)
PROC: 0DBB0ZZ Excision of Ileum, Open Approach (ICD-10-PCS; principal; 2023-11-12 08:50)
PROC: 30233N1 Transfusion of Nonautologous Red Blood Cells into Peripheral Vein, Percutaneous Approach (ICD-10-PCS; 2023-11-13)
DX: K56.609 Unspecified intestinal obstruction, unspecified as to partial versus complete obstruction (principal); R65.11 Systemic inflammatory response syndrome (SIRS) of non-infectious origin with acute organ dysfunction; D62 Acute posthemorrhagic anemia; E87.1 Hypo-osmolality and hyponatremia; I10 Essential (primary) hypertension; E78.00 Pure hypercholesterolemia, unspecified; Z96.642 Presence of left artificial hip joint; Z96.653 Presence of artificial knee joint, bilateral; N40.0 Benign prostatic hyperplasia without lower urinary tract symptoms; K52.9 Noninfective gastroenteritis and colitis, unspecified; K57.30 Diverticulosis of large intestine without perforation or abscess without bleeding; E87.6 Hypokalemia; Z79.899 Other long term (current) drug therapy; Z90.49 Acquired absence of other specified parts of digestive tract; Z82.49 Family history of ischemic heart disease and other diseases of the circulatory system
CPT/HCPCS: 36415; 36430; 71045; 74176; 80048; 80053; 82272; 82948; 83735; 84132; 84145; 85025; 85027; 86885; 86900; 86901; 86920; 87081; 88307; 90732; 93005; 94760; 97110; 97161; 97530; 99285; A4314; A4618; A6449; A7000; C1758; C9290; G0378; J0131; J1100; J1170; J1650; J2175; J2250; J2405; J2543; J2704; J2765; J3010; J3480; J3490; J7030; J7040; J7120; P9016